=== PATIENT | male | born 1980 | race Caucasian/White ===

== ENCOUNTER → 2021-05-19 | Emergency (ER) | payer OTHER ==
[~2021-05-19] MED LIST: CALAN 80MG TABL80 MG PO; TOPROL XL 25MG25 MG PO
[2021-05-19 15:56] LABS: BASOPHIL 0.8 % (0-2); EOSINOPHIL 3.2 % (0-5); HCT 46.9 % (42.0-52.0); HGB 15.5 g/dl (13.2-18.0); LYMPHOCYTE 26.8 % (15-48); MCH 29.8 pg (25.0-31.0); MONOCYTE 9.6 % (0-12); MPV 10.6 fL (6.0-9.5); NEUTROPHIL 59.4 % (41-80); NRBC 0; PLT 189 K/uL (150-400); RBC 5.21 M/uL (4.70-6.00); RDW 12.3 % (11.5-14.0); WBC 6.6 K/uL (4.0-10.5)
[2021-05-19 16:14] LABS: BUN/CREAT RATIO (CALC) 12.9 RATIO; CREATININE 1.55 mg/dL (0.67-1.17); MAGNESIUM 1.8 mg/dL (1.8-2.4); POTASSIUM 4.3 mmol/L (3.5-5.1)
== END | disposition home or self-care (01) ==
LOC: FER 15:06
PROVIDERS: Internal Medicine
DX: I47.1 Supraventricular tachycardia (principal); I44.0 Atrioventricular block, first degree; N17.9 Acute kidney failure, unspecified
CPT/HCPCS: 36415; 80048; 83735; 84484; 85025; 93005; J2250; J7120

== ENCOUNTER 2021-10-28 12:24 | Emergency (ER) | payer OTHER ==
[2021-10-28 12:57] LABS: BASOPHIL 0.8 % (0-2); EOSINOPHIL 3.5 % (0-5); HCT 45.3 % (42.0-52.0); LYMPHOCYTE 25.1 % (15-48); MCH 29.5 pg (25.0-31.0); MCHC 33.1 g/dL (32.0-36.0); MONOCYTE 10.4 % (0-12); MPV 10.3 fL (6.0-9.5); NEUTROPHIL 60.1 % (41-80); NRBC 0; PLT 184 K/uL (150-400); RBC 5.09 M/uL (4.70-6.00); RDW 12.3 % (11.5-14.0); WBC 7.4 K/uL (4.0-10.5)
[2021-10-28 14:02] LABS: ALBUMIN 4.6 g/dL (3.4-5.0); BILIRUBIN - TOTAL 0.6 mg/dL (0.2-1.0); BUN/CREAT RATIO (CALC) 16.5 RATIO; CREATININE 1.33 mg/dL (0.67-1.17); GLOBULIN (CALCULATION) 3.5 g/dL; POTASSIUM 4.1 mmol/L (3.5-5.1); TOTAL PROTEIN 8.1 g/dL (6.4-8.2)
== END 2021-10-28 14:50 | disposition home or self-care (01) ==
LOC: FER 12:24
PROVIDERS: Emergency Medicine
DX: I47.2 Ventricular tachycardia (principal)
CPT/HCPCS: 36415; 71045; 80053; 84484; 85025; 93005; J2060